=== PATIENT | female | born 1940 | race Caucasian/White ===

== ENCOUNTER → 2021-07-04 | Outpatient (CLI) | payer OTHER | LOC: HYPER 09:03 | PROVIDERS: ATTEND Emergency Medicine | DX: L97.822 Non-pressure chronic ulcer of other part of left lower leg with fat layer exposed (principal); S80.12XA Contusion of left lower leg, initial encounter; S81.812A Laceration without foreign body, left lower leg, initial encounter; R60.0 Localized edema; E66.9 Obesity, unspecified; Z68.32 Body mass index [BMI] 32.0-32.9, adult; Z79.01 Long term (current) use of anticoagulants; Z87.891 Personal history of nicotine dependence; Z96.649 Presence of unspecified artificial hip joint; Z79.899 Other long term (current) drug therapy; X58.XXXA Exposure to other specified factors, initial encounter; Y93.89 Activity, other specified; Y92.89 Other specified places as the place of occurrence of the external cause; Y99.8 Other external cause status ==

== ENCOUNTER → 2021-07-16 | Outpatient (CLI) | payer OTHER | LOC: SJCVCIMAG 08:35 | PROVIDERS: ATTEND Emergency Medicine | DX: I73.9 Peripheral vascular disease, unspecified (principal); L97.819 Non-pressure chronic ulcer of other part of right lower leg with unspecified severity ==